=== PATIENT | female | born 1980 | race African-American/Black ===

== ENCOUNTER 2023-02-04 03:46 | Emergency (ER) | payer SELFPAY ==
[~2023-02-04] VITALS: Ht 165.1 cm; Wt 55.0 kg
[2023-02-04 03:56] VITALS: BP 125/83; PULSE 99; RESP 18; TEMP 98.7; O2SAT 100
== END 2023-02-04 04:11 | disposition home or self-care (01) ==
LOC: ER 04:05
DX: F23 Brief psychotic disorder (principal); Z00.00 Encounter for general adult medical examination without abnormal findings
CPT/HCPCS: 99283

== ENCOUNTER 2023-11-16 16:49 | Emergency (ER) | payer SELFPAY ==
[~2023-11-16] VITALS: Ht 160 cm; Wt 65.7 kg
[2023-11-16 17:00] VITALS: BP 124/85; PULSE 114; RESP 16; TEMP 98.7; O2SAT 100
[2023-11-16 17:39] LABS: BASOPHILS % 0.8 % (0.0-2.0); EOSINOPHILS % 2.7 % (0.0-5.0); HEMATOCRIT. 28.9 % (36.0-48.0); HEMOGLOBIN. 8.3 g/dL (12.0-16.0); LYMPHOCYTES % 16.6 % (20.0-50.0); MEAN CORPUSCULAR HEMOGLOBIN 19.3 pg (28.0-32.0); MEAN CORPUSCULAR HGB CONC 28.8 g/dL (31.0-37.0); MEAN PLATELET VOLUME 8.8 fl (7.4-10.4); MONOCYTES % 6.3 % (2.0-8.0); NEUTROPHILS % 73.6 % (40.0-76.0); PLATELET 390 x1000/uL (130-400); RED BLOOD CELL COUNT 4.32 mill/uL (4.2-5.4); RED CELL DISTRIBUTION WIDTH 31.4 % (11.6-14.6); WHITE BLOOD COUNT 9.2 x1000/uL (4.5-11.0)
[2023-11-16 17:43] LABS: ADD RBC MORPHOLOGY YES; DIFFERENTIAL COMMENT 1
[2023-11-16 17:45] LABS: CLARITY URINE CLEAR (CLEAR); COLOR URINE YELLOW (YELLOW); GLUCOSE URINE 3+ (NEGATIVE); KETONES URINE NEGATIVE (NEGATIVE); LEUKOCYTE ESTERASE URINE NEGATIVE (NEGATIVE); NITRITE URINE NEGATIVE (NEGATIVE); OCCULT BLOOD URINE 3+ (NEGATIVE); PH URINE 5.5 (4.5-8.0); PROTEIN URINE NEGATIVE (NEGATIVE); SPECIFIC GRAVITY URINE 1.041 (1.005-1.030); UROBILINOGEN URINE 0.2 E.U./dL (0.2-1.0)
[2023-11-16 17:52] LABS: CARBON DIOXIDE 20 mEq/L (21-32); CHLORIDE 105 mEq/L (98-107); CREATININE 0.9 mg/dL (0.6-1.0); HCG SCREEN NEGATIVE; POTASSIUM 3.8 mEq/L (3.5-5.1); SODIUM 134 mEq/L (136-145); UREA NITROGEN BLOOD 9 mg/dL (9-23)
[2023-11-16 17:53] LABS: ALANINE AMINOTRANSFERASE 9 IU/L (10-49); ALBUMIN 4.3 g/dL (3.2-4.8); ASPARTATE AMINOTRANSFERASE 17 IU/L (<34); BILIRUBIN TOTAL 0.7 mg/dL (0.1-1.0); CALCIUM 8.6 mg/dL (8.7-10.4); PROTEIN TOTAL 7.8 g/dL (6.0-8.3)
[2023-11-16 17:54] LABS: GLUCOSE 435 mg/dL (70-105)
[2023-11-16 18:01] LABS: PLATELET ESTIMATE NORMAL
[2023-11-16 18:02] LABS: HYPOCHROMASIA 1+; MICROCYTOSIS 2+; TARGET CELLS 1+
[2023-11-16 18:19] LABS: BACTERIA URINE 2+; SQUAMOUS EPITHELIAL CELL URINE 1+ /lpf (RARE/1+)
[2023-11-16] MEDS: INSULIN REGULAR (HUMULIN R) 300UNITS/3ML VIAL SUBCUT ONE (20:13)
[2023-11-16] MEDS: CEFTRIAXONE SODIUM 1G VIAL IM ONE (20:18)
[2023-11-16] MEDS: LIDOCAINE HCL/EPINEPHRINE 1%-EPI 1:100,000 20 ML VIAL INFIL ONE (20:30)
[2023-11-16] MEDS: LIDOCAINE HCL 1% 20ML VIAL (Pyxis) INJ INFIL ONE (20:58)
[2023-11-16] MEDS ORDERED: CEFP200T13 MT (21:06)
[2023-11-16] MEDS ORDERED: METF-414 MT (21:06)
== END 2023-11-16 21:24 | disposition home or self-care (01) ==
LOC: ER 16:49
DX: N39.0 Urinary tract infection, site not specified (principal); R73.9 Hyperglycemia, unspecified; L72.9 Follicular cyst of the skin and subcutaneous tissue, unspecified
CPT/HCPCS: 80053; 81003; 82962; 84703; 85025; 36415; 10061; 96372; 99285; J0696; J1815; J3490 ×2; Z7610 ×6

== ENCOUNTER 2025-03-28 17:18 | Emergency (ER) | payer MEDICAID ==
[~2025-03-28] VITALS: Ht 167.6 cm; Wt 111.0 kg
[~2025-03-28 17:18] MED LIST: CEFP200T13 MT; METF-414 MT
[2025-03-28 17:20] VITALS: O2SAT 100
[2025-03-28 17:55] LABS: BASOPHILS % 2.1 % (0.0-2.0); EOSINOPHILS % 4.4 % (0.0-5.0); HEMATOCRIT. 25.1 % (36.0-48.0); HEMOGLOBIN. 7.1 g/dL (12.0-16.0); LYMPHOCYTES % 19.2 % (20.0-50.0); MEAN PLATELET VOLUME 8.6 fl (7.4-10.4); MONOCYTES % 5.4 % (2.0-8.0); NEUTROPHILS % 68.9 % (40.0-76.0); RED BLOOD CELL COUNT 3.98 mill/uL (4.2-5.4); RED CELL DISTRIBUTION WIDTH 27.8 % (11.6-14.6)
[2025-03-28 17:59] LABS: ADD RBC MORPHOLOGY YES; PLATELET 1114 x1000/uL (130-400)
[2025-03-28 18:08] LABS: CREATININE 0.7 mg/dL (0.6-1.0); UREA NITROGEN BLOOD 10 mg/dL (9-23)
[2025-03-28 18:16] LABS: HCG SCREEN NEGATIVE
[2025-03-28 18:23] LABS: PLATELET ESTIMATE MARKEDLY INCREASED
[2025-03-28 22:15] VITALS: BP 163/91; PULSE 80; RESP 15; TEMP 37.2; O2SAT 100
== END 2025-03-29 00:13 | disposition short-term general hospital (02) ==
LOC: ER 17:18 → EDBEDREQ 21:55 → EDBEDREQTM 21:55 → ER 03-29 00:13 → CMPBEDREQ 03-30 07:22
DX: D75.839 Thrombocytosis, unspecified (principal); D64.9 Anemia, unspecified; R53.83 Other fatigue; E11.9 Type 2 diabetes mellitus without complications
CPT/HCPCS: 80048; 84703; 85025; 86850; 86900; 86901; 36415; 71045; 93005; 99285; Z7610